=== PATIENT | female | born 2000 | race African-American/Black ===

== ENCOUNTER 2020-08-12 14:39 | Emergency (ER) | payer OTHER, SELFPAY ==
[2020-08-12 15:32] VITALS: BP 120/80; PULSE 78; RESP 18; TEMP 36.7; O2SAT 99; BMI 44.6
--- NOTE | 2020-08-12 16:21 | ECG_ITS ---
Test Reason : SYNCOPE Blood Pressure : / mmHG Vent. Rate : 077 BPM Atrial Rate : 075 BPM P-R Int : 140 ms QRS Dur : 090 ms QT Int : 380 ms P-R-T Axes : 036 040 051 degrees QTc Int : 430 ms Normal sinus rhythm with sinus arrhythmia Normal ECG No previous ECGs available Referred By: Dulce Franklin Electronically Signed By: KATTY YORK MD MTDD
--- NOTE | 2020-08-12 16:22 | ED_ITS ---
HPI - Syncope General Chief Complaint: Syncope Stated Complaint: syncope Time Seen by Provider: 08/12/20 16:12 Source: patient Mode of arrival: ambulatory Limitations: no limitations History of Present Illness HPI narrative: Patient comes to emergency room complaining of 3 syncopal episodes this morning at 02:00. Patient states she was getting into the shower, the next thing that she knows, she woke up on the floor, have her body inside it up, belly over the border of the bathtub and her face flat on the floor. Patient complaining of epistaxis which self-resolved. Patient states she has history of syncopal episodes in the shower, she takes cool showers to avoid them but this time she passed out. Patient states she has had multiple syncopal episodes since she was in middle school. Patient states they usually happen 1st thing in the morning when she wakes up, does not eat breakfast or strain is exercise. 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 To the syncopal episodes she never has shortness of breath or chest pain. Patient denies any previous workups, denies ever having a Holter monitor Related Data Home Medications Medication Instructions Recorded Confirmed desogestrel 0.15 mg-ethinyl tab PO 08/12/20 estradiol 0.03 mg tablet Previous Rx's Medication Instructions Recorded tramadol 50 mg PO Q8H PRN #7 tab 08/12/20 Allergies Allergy/AdvReac Type Severity Reaction Status Date / Time No Known Allergies Allergy Verified 08/12/20 15:36 Review of Systems Review of Systems: Constitutional : No Weight loss, No Fever, No Chills, No Night Sweats, No Fatigue, No Malaise ENT/Mouth : No Hearing loss, No Ear Pain, No Nasal Congestion, No Sinus Pain, No Hoarseness, No sore throat, No Rhinorrhea, No Swallowing Difficulty, complaining of epistaxis which self-resolved, nasal bridge pain Eyes: No Eye Pain, No Swelling, No Redness, No Foreign Body, No Discharge, No Vision Changes Cardiovascular : No Chest Pain, No SOB, No Dyspnea on Exertion, No Orthopnea, No Edema, No Palpitations Respiratory : No Cough, No Sputum, No Wheezing, No Smoke Exposure, No Dyspnea Gastrointestinal : No Nausea, No Vomiting, No Diarrhea, No Constipation, mild abdominal pain from fall earlier this morning, No Hematochezia, No Melena Genitourinary : no irregular bleeding, No Dysuria, No Urinary Frequency, No Hematuria, No Urinary Incontinence, No Urgency, No Flank Pain, No Urinary Flow Changes, No Hesitancy Musculoskeletal : No joint pain, No Myalgias, No Joint Swelling, right-sided leg pain from fall Skin : No Skin Lesions, No rash, no ecchymosis Neuro : No Weakness, No Numbness, No Paresthesias, No Loss of Consciousness, No Dizziness, No Headache Psych : No Anxiety/Panic, No Depression, No SI/HI/AH/VH, No Social Issues, Heme/Lymph: No Bruising, No Bleeding,No Lymphadenopathy Endocrine : No Polyuria, No Polydipsia, No Temperature Intolerance [facility] Past Medical History Medical History (Updated 08/12/20 @ 19:15 by Dulce Franklin MD) Syncope Social History Social History Alcohol intake: current Alcohol intake frequency: holidays/special occasions only Smoking Status: Never smoker Use of substances other than those prescribed or required for medical reasons: No Advance Directives: No Advance Directives Information Provided: Yes Physical Exam Vital Signs: Vital Signs: Last Vital Signs Temp 98.3 F 08/12/20 17:46 Pulse 69 08/12/20 17:46 Resp 18 08/12/20 17:46 BP 129/80 08/12/20 17:46 Pulse Ox 99 08/12/20 17:46 Body Mass Index 44.6 Appearance: Alert. Oriented X3. No acute distress. Eyes: Pupils equal, round and reactive to light. ENT: Pharynx normal. Pain to palpation over the nasal bridge Neck: Normal inspection. Neck supple. No lymph nodes noted. No crepitus CVS: Normal heart rate and rhythm. Pulses normal. Normal S1 and S2 Respiratory: No respiratory distress. Breath sounds normal. No Wheezing. No rales Abdomen: Soft and nontender to deep palpation. No rigidity. No distention. good BS x4 Skin: Skin warm and dry. Normal skin color. Normal skin turgor. No ecchymosis over the abdomen or right hip Extremities: No lower extremity edema. No lower extremity edema. No Lacerations. No Rash Neuro: Oriented X 3. No motor deficit. No sensory deficit. Moving all ext ermities. No slurred speech. Course Course Course Narrative: I discussed the labs and imaging with the patient, no fracture, just soft tissue contusions especially over the right hip and the nasal bridge. I discussed with the patient that she needs a more thorough workup that can be done as an outpatient for recurrent syncopal episodes that she has had since she was in middle school. I discussed with the patient that she will likely need a Holter monitor. Orthostatic vitals negative We are waiting for the patient's test to return, patient states that she is on control and is compliant with her tablets and does not want to wait for the results. MDM - Syncope Lab Data Result diagrams: 08/12/20 17:36 08/12/20 17:36 Labs: Lab Results 08/12/20 08/12/20 08/12/20 Range/Units 17:36 17:36 17:36 WBC 9.5 (4.8-10.8) X10*3/uL RBC 4.28 (4.20-5.50) X10*6/uL Hgb 12.5 (12.0-16.0) g/dl Hct 38.3 (37-47) % MCV 89.5 (80-98) fL MCH 29.2 (27.0-33.0) pg MCHC 32.6 (31.0-35.0) g/dl RDW 12.7 (11.0-16.0) % Plt Count 274 (160-400) X10*3/uL MPV 10.3 (9.4-12.3) fL Immature Gran % (Auto) 0.2 (0.0-0.4) % Neut % (Auto) 57.6 (45-73) % Lymph % (Auto) 34.0 (20-40) % Placer % (Auto) 5.7 (2-11) % Eos % (Auto) 2.2 (0-4) % Baso % (Auto) 0.3 (0-2) % Lymph # (Auto) 3.2 (1.2-4.9) X10*3/uL Placer # (Auto) 0.5 (0.1-1.2) X10*3/uL Eos # (Auto) 0.2 (0.0-0.4) X10*3/uL Baso # (Auto) 0.0 (0.0-0.2) X10*3/uL Abs Immat Gran (auto) 0.02 (0.00-0.03) X10*3/uL Absolute Neuts (auto) 5.5 (2.0-8.3) X10*3/uL Absolute Nucleated RBC 0.000 (0.0-0.012) X10*3/uL Nucleated RBC % (auto) 0.0 (0.0-0.2) /100WBC Sodium 138 (135-145) mmol/L Potassium 4.4 (3.3-5.1) mmol/l Chloride 107 (96-108) mmol/L Carbon Dioxide 21 L (22-29) mmol/L Anion Gap 14 (12-20) BUN 7 L (9-16) mg/dL Creatinine 0.70 (0.5-1.4) mg/dL Estim Creat Clear Calc 160.5 Estimated GFR > 60 Random Glucose 93 (60-115) mg/dL Calcium 8.3 L (8.4-10.2) mg/dL Troponin I High Sens < 3.5 (<3.5-17.0) ng/L Discharge Plan Discharge Clinical Impression: Syncope and collapse, Contusion Patient Disposition: Home, Self-Care Instructions: Syncope (ED) Additional Instructions: Please follow-up with your primary care physician and with cardiology. Please follow-up with your primary care physician tomorrow. If you have any worsening or new symptoms, please return to the emergency room or call 911 Prescriptions: New tramadol 50 mg tablet 50 mg PO Q8H PRN (Reason: pain) Qty: 7 RF: 0 No Action desogestrel-ethinyl estradiol 0.15-0.03 mg tablet PO RF: 0 Referrals: Oneil Muhammad MD [Physician] - 2 days (reocurrent syncopal episodes)
--- NOTE | 2020-08-12 17:06 | XR_ITS ---
EXAMINATION: XR FACIAL BONES CLINICAL INFORMATION: Pain after fall. COMPARISON: None TECHNIQUE: 3 views of the facial bones were obtained. FINDINGS: There are no fractures or dislocations. No bone, joint or soft tissue abnormality is demonstrated. XR/XR facial bones min 3V IMPRESSION: Unremarkable examination.
[2020-08-12 17:39] VITALS: BP 115/68; BP 129/80; PULSE 74; PULSE 75
[2020-08-12 17:41] VITALS: BP 129/83; PULSE 74
[2020-08-12 17:46] VITALS: BP 129/80; PULSE 69; RESP 18; TEMP 36.8; O2SAT 99
[2020-08-12 18:02] LABS: MANUAL DIFF FLAG NO
[2020-08-12 18:08] LABS: Basophils Percent Auto 0.3 % (0-2); Eosinophils Absolute Auto 0.2 X10*3/uL (0.0-0.4); Eosinophils Percent Auto 2.2 % (0-4); Hematocrit 38.3 % (37-47); Hemoglobin 12.5 g/dl (12.0-16.0); Imm Gran Abs Auto 0.02 X10*3/uL (0.00-0.03); Imm Gran Pct Auto 0.2 % (0.0-0.4); Lymphocytes Absolute Auto 3.2 X10*3/uL (1.2-4.9); Mean Corpuscular HGB Conc 32.6 g/dl (31.0-35.0); Mean Corpuscular Hemoglobin 29.2 pg (27.0-33.0); Mean Corpuscular Volume 89.5 fL (80-98); Mean Platelet Volume 10.3 fL (9.4-12.3); Monocytes Absolute Auto 0.5 X10*3/uL (0.1-1.2); Monocytes Percent Auto 5.7 % (2-11); Neutrophils Absolute Auto 5.5 X10*3/uL (2.0-8.3); Neutrophils Percent Auto 57.6 % (45-73); Platelet Count 274 X10*3/uL (160-400); Red Blood Count 4.28 X10*6/uL (4.20-5.50); Red Cell Distribution Width 12.7 % (11.0-16.0); White Blood Count 9.5 X10*3/uL (4.8-10.8)
[2020-08-12 18:21] LABS: Anion Gap 14 (12-20); Blood Urea Nitrogen 7 mg/dL (9-16); Calcium 8.3 mg/dL (8.4-10.2); Carbon Dioxide 21 mmol/L (22-29); Chloride 107 mmol/L (96-108); Creatinine Clr Calc Pharmacy 160.5; Estimated Glomerular Filt Rate > 60; Glucose Random 93 mg/dL (60-115); Potassium 4.4 mmol/l (3.3-5.1); Sodium 138 mmol/L (135-145)
[2020-08-12 18:26] LABS: Troponin-I High Sensitivity < 3.5 ng/L (<3.5-17.0)
== END 2020-08-12 19:34 | disposition home or self-care (01) ==
PROVIDERS: Emergency Provider Emergency Medicine; PCP Registered Nurse
DX: S70.01XA Contusion of right hip, initial encounter (principal); S00.33XA Contusion of nose, initial encounter; R55 Syncope and collapse; W18.30XA Fall on same level, unspecified, initial encounter; Y93.9 Activity, unspecified; Y92.002 Bathroom of unspecified non-institutional (private) residence as the place of occurrence of the external cause; Z79.899 Other long term (current) drug therapy
CPT/HCPCS: 36415; 70150; 80048; 84484; 85025; 93005; 99283; 99284